=== PATIENT | female | born 1950 | race Caucasian/White ===

== ENCOUNTER → 2016-06-06 | Outpatient (CLI) | payer MEDICARE, OTHER ==
[~2016-06-06] MED LIST: ASPIRIN81 MG PO; FISH OIL 1,2001 EACH PO; FLEXERIL 10 MG10 MG PO; FLUOXETINE HCL40 MG PO; LEVOTHYROXINE25 MCG PO; LOVASTATIN40 MG PO; METOPROLOL SUCC25 MG PO; MULTIVITAMINS1 EAC1 PO; NORVASC 5 MG TAB5 MG PO; OMEPRAZOLE20 M1 PO; VENTOLIN HFA8 GM INH; VITAMIN E400 UNI1 PO
== END ==
LOC: HEART 5 08:53
DX: R07.9 Chest pain, unspecified (principal); R55 Syncope and collapse; R42 Dizziness and giddiness; R00.2 Palpitations
CPT/HCPCS: 78452; 93017; A9502

== ENCOUNTER → 2020-08-23 | Outpatient (CLI) | payer MEDICARE, OTHER ==
[~2020-08-23] MED LIST changes: +KLONOPIN TAB 00.5 MG PO; -LEVOTHYROXINE25 MCG PO; +LEVOTHYROXINE50 MCG PO; -OMEPRAZOLE20 M1 PO; +OMNICEF 300 MG300 MG PO; +PANTOPRAZOLE SO20 MG PO; +SERTRALINE HCL50 MG PO; +TRAZODONE HCL100 MG PO; +VITAMIN D-40400 UNIT PO; +ZOLOFT50 MG PO
== END ==
LOC: RAD 11:39
DX: R05 Cough (principal)
CPT/HCPCS: 71046

== ENCOUNTER → 2020-12-28 | Outpatient (CLI) | payer MEDICARE, OTHER | LOC: HEART 5 09:47 | DX: R05 Cough (principal); R06.02 Shortness of breath | CPT/HCPCS: 94010 ==

== ENCOUNTER → 2021-10-30 | Outpatient (CLI) | payer MEDICARE, OTHER | LOC: RAD 16:00 | DX: R07.9 Chest pain, unspecified (principal) | CPT/HCPCS: 71046 ==

== ENCOUNTER → 2021-12-06 | Outpatient (CLI) | payer MEDICARE, OTHER | LOC: HEART 5 08:09 | DX: R07.9 Chest pain, unspecified (principal); R06.02 Shortness of breath; R60.0 Localized edema | CPT/HCPCS: 78452; 93306; 93971; A9502; J2785 ==